=== PATIENT | male | born 1970 | race Two or more races ===

== ENCOUNTER 2017-11-27 14:20 | Outpatient (CLI) | payer OTHER | END 2017-11-27 23:59 | disposition home or self-care (01) | LOC: WOU 14:20 | PROVIDERS: ATTEND Surgery | DX: L98.8 Other specified disorders of the skin and subcutaneous tissue (principal); G82.20 Paraplegia, unspecified; T14.8XXS Other injury of unspecified body region, sequela; X58.XXXS Exposure to other specified factors, sequela; E66.9 Obesity, unspecified; Z68.30 Body mass index [BMI] 30.0-30.9, adult; Z71.3 Dietary counseling and surveillance; R19.5 Other fecal abnormalities; Z87.891 Personal history of nicotine dependence | CPT/HCPCS: A6402; G0463 ==

== ENCOUNTER → 2017-12-18 | Outpatient (CLI) | payer OTHER | END | disposition home or self-care (01) | LOC: WOU 13:30 | PROVIDERS: ATTEND Surgery | DX: L24.89 Irritant contact dermatitis due to other agents (principal); R15.1 Fecal smearing; G82.20 Paraplegia, unspecified; T14.90XS Injury, unspecified, sequela; T14.8XXS Other injury of unspecified body region, sequela; X58.XXXS Exposure to other specified factors, sequela | CPT/HCPCS: A6402; G0463 ==

== ENCOUNTER 2018-10-01 15:15 | Outpatient (CLI) | payer OTHER | END 2018-10-01 23:59 | disposition home or self-care (01) | LOC: WOU 15:15 | PROVIDERS: ATTEND Surgery | DX: K62.89 Other specified diseases of anus and rectum (principal); R15.9 Full incontinence of feces; R32 Unspecified urinary incontinence; E66.9 Obesity, unspecified; Z68.32 Body mass index [BMI] 32.0-32.9, adult; Z71.3 Dietary counseling and surveillance; T14.8XXS Other injury of unspecified body region, sequela; X58.XXXS Exposure to other specified factors, sequela | CPT/HCPCS: G0463 ==